=== PATIENT | female | born 1945 | race Caucasian/White ===

== ENCOUNTER 2022-08-08 10:50 | Emergency (ER) | payer MEDICARE, OTHER ==
[2022-08-08] MEDS ORDERED: CLONIDINE 0.1 MG TABLET PO ONE (11:22)
--- NOTE | 2022-08-08 11:29 | ERPHSYRPT ---
- History of Present Illness Source: patient Exam Limitations: no limitations Patient Subjective Stated Complaint: pt reports high blood pressure for weeks, states she is being treated for it by her PCP with lisinopril and metoprolol, she took her BP at home today and had a slight headache and came for an evaluation Triage Nursing Assessment: pt is aox3, pupils perrl, afebrile, resps easy and non labored, cap refill < 3 seconds, radial pulses strong and equal, pt skin pink warm dry. Physician History: 74 yo wf w h/o HTN complains of BP being elevated today and mild diffuse ARSHAD which she rates a /10. Pain is diffuse. She denies fever/trauma/N/V/focal weakness/chest pain/dyspnea. Pt has had hypertension for many years which Dr. Boyer treats. Timing/Duration: today Severity: mild Modifying Factors: Improves With: nothing Associated Symptoms: denies symptoms Allergies/Adverse Reactions: NKA Allergy (Verified 08/08/22 11:08) Home Medications: Aspirin 81 mg PO HS 01/18/16 [History] Lisinopril 10 mg [Zestril 10 MG] 10 mg PO HS 01/18/16 [History] Metoprolol Succinate 50 mg [Toprol Xl 50 MG] 50 mg PO DAILY 08/08/22 [History] Hx Tetanus, Diphtheria Vaccination/Date Given: Yes Hx Influenza Vaccination/Date Given: Yes Hx Pneumococcal Vaccination/Date Given: Yes Immunizations Up to Date: Yes Travel Risk - International Travel Have you traveled outside of the country in past 3 weeks: No - Coronavirus Screening Are you exhibiting any of the following symptoms?: No Close contact with a COVID-19 positive Pt in past 14-21 Days: No - Vaccine Status Have you recieved a Covid-19 vaccination: Yes Physical Therapy Resident: Moderna - Vaccination Dates Date of 2cond Vaccination (if applicable): unk - Review of Systems Constitutional: No Symptoms Eyes: No Symptoms Ears, Nose, & Throat: No Symptoms Respiratory: No Symptoms Cardiac: No Symptoms Abdominal/Gastrointestinal: No Symptoms Genitourinary Symptoms: No Symptoms Musculoskeletal: No Symptoms Skin: No Symptoms Neurological: No Symptoms, Headache Psychological: No Symptoms Endocrine: No Symptoms Hematologic/Lymphatic: No Symptoms Immunological/Allergic: No Symptoms - Past Medical History Pertinent Past Medical History: Yes Cardiac History: Hypertension Female Reproductive Disorders: Other Other Medical History: urinary incontinence. eczema on scalp - Past Surgical History Past Surgical History: Yes Female Surgical History: Hysterectomy - Social History Smoking Status: Never smoker Exposure to second hand smoke: No Alcohol Use: None Drug Use: none Patient Lives Alone: Yes Significant Family History: hypertension - Nursing Vital Signs Nursing Vital Signs: Initial Vital Signs Temperature 98.6 F 08/08/22 10:56 Pulse Rate 59 L 08/08/22 10:56 Respiratory Rate 20 08/08/22 10:56 Blood Pressure 205/102 08/08/22 10:56 O2 Sat by Pulse Oximetry 95 08/08/22 10:56 Pain Scale Pain Intensity 0 Hypertensive/Mildly daiana - Physical Exam General Appearance: no apparent distress Eye Exam: PERRL/EOMI, eyes nml inspection Ears, Nose, Throat Exam: normal ENT inspection, TMs normal, pharynx normal, moist mucous membranes Neck Exam: normal inspection, non-tender, supple, full range of motion, No meningismus, No mass, No Brudzinski, No Kernig's, No carotid bruit Respiratory Exam: normal breath sounds, lungs clear, airway intact Cardiovascular Exam: regular rate/rhythm, normal heart sounds, normal peripheral pulses, capillary refill <2 sec, No murmur Gastrointestinal/Abdomen Exam: soft, normal bowel sounds, No tenderness Back Exam: normal inspection, normal range of motion, No CVA tenderness, No vertebral tenderness Extremity Exam: normal inspection, normal range of motion Neurologic Exam: alert, oriented x 3, cooperative, 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, normal mood/affect, nml cerebellar function, nml station & gait, sensation nml, No motor deficits, No sensory deficit Skin Exam: normal color, warm, No dry Lymphatic Exam: No adenopathy SpO2 Interpretation: normal SpO2: 95 O2 Delivery: Room Air - Course Nursing assessment & vital signs reviewed: Yes - CT Exams Head CT Interpretation: Tele-radiologist Report (Nothing acute) Ordered Tests: Active Orders 24 hr Category Date Time Status HEAD WITHOUT CONTRAST [CT] Stat Exams 08/08/22 12:31 Taken Medication Summary Discontinued Medications Generic Name Dose Route Start Last Admin Trade Name Freq PRN Reason Stop Dose Admin Clonidine 0.1 mg 08/08/22 11:22 08/08/22 12:18 Clonidine Hcl 0.1 Mg Tablet PO 08/08/22 11:23 0.1 mg STAT ONE Administration Clonidine Confirm 08/08/22 12:15 Clonidine Hcl 0.1 Mg Tablet Administered 08/08/22 12:16 Dose 0.1 mg .ROUTE .STK-MED ONE - Progress Progress: improved Progress Note: 08/08/22 13:13 BP improved w 0.1 po clonidine Nursing note and vital signs reviewed CT result reviewed and result shared w pt No food or housing insecurities noted 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 Boyer Take 20mg Lisinopril at night, starting tonight Return to ER for worsening headache, focal weakness, shortness of breath, or worsening headache
[2022-08-08] MEDS ORDERED: CLONIDINE 0.1 MG TABLET ONE (12:15)
[2022-08-08 13:06] VITALS: O2SAT 95
[2022-08-08 13:20] VITALS: BP 170/85; PULSE 56
--- NOTE | 2022-08-08 19:53 | XRAY ---
Indication: Headache. High blood pressure. Daily aspirin. Multiple contiguous axial images obtained through the head without contrast. Comparison: January 18, 2016 Age-appropriate global atrophy with mild periventricular degenerative micro-ischemia bilaterally. No acute intracranial hemorrhage, abnormal extra-axial fluid collection, or mass effect. Fourth ventricle is midline without hydrocephalus. Bony calvarium intact. Visualized paranasal sinuses and mastoid air cells are clear. Impression: Nonacute senile brain. Comment: Preliminary interpretation made by [facility]. No critical discrepancy.
== END 2022-08-08 13:18 | disposition home or self-care (01) ==
LOC: ED 10:50
DX: I10 Essential (primary) hypertension (principal); R51.9 Headache, unspecified; Z79.899 Other long term (current) drug therapy
CPT/HCPCS: 70450; 99283; A9270-GY